=== PATIENT | female | born 1960 | race Caucasian/White ===

== ENCOUNTER 2018-02-20 21:54 | Observation (INO) ==
[2018-02-20 22:27] LABS: Baso % (Auto) 0.8 % (0.0-2.0); Eos # (Auto) 0.1 th/mm3 (0.0-0.4); Eos % (Auto) 1.9 % (0.0-4.0); Hematocrit 35.6 % (35.0-46.0); Hemoglobin 12.2 gm/dL (11.6-15.3); Lymph # (Auto) 2.4 th/mm3 (1.0-4.8); Lymph % (Auto) 42.4 % (9.0-44.0); Mean Corpuscular HGB Conc 34.3 % (32.0-36.0); Mean Corpuscular Hemoglobin 31.2 pg (27.0-34.0); Mean Platelet Volume 6.6 fL (7.0-11.0); Mono # (Auto) 0.4 th/mm3 (0.0-0.9); Neut # (Auto) 2.7 th/mm3 (1.8-7.7); Neut % (Auto) 47.9 % (16.0-70.0); Platelet Count 209 th/mm3 (150-450); Red Blood Count 3.91 mil/mm3 (4.00-5.30); Red Cell Distribution Width 13.4 % (11.6-17.2); White Blood Count 5.6 th/mm3 (4.0-11.0)
--- NOTE | 2018-02-20 22:36 | XR ---
EXAM DATE: 02/20/2018 10:12 PM EDT AGE/SEX: 58 years / Female INDICATIONS: Cough. CLINICAL DATA: This is the patient's initial encounter. Patient reports that signs and symptoms have been present for 1 day and indicates a pain score of 0/10. MEDICAL/SURGICAL HISTORY: Hypertension. None. COMPARISON: No prior exams available for comparison. FINDINGS: A single AP view of the chest demonstrates the lungs to be symmetrically aerated without evidence of mass, infiltrate or effusion. The cardiomediastinal contours are unremarkable. Osseous structures a re intact. CONCLUSION: The lungs are clear. Electronically signed by: Alejandro Franklin MD 02/20/2018 10:35 PM EDT
[2018-02-20 22:48] LABS: Alanine Aminotransferase 21 U/L (10-53); Albumin 4.3 g/dL (3.4-5.0); Anion Gap 9 meq/L (5-15); Aspartate Aminotransferase 27 U/L (15-37); Blood Urea Nitrogen 23 mg/dL (7-18); Calcium 9.4 mg/dL (8.5-10.1); Chloride 106 meq/L (98-107); Glomerular Filtration Rate 55 mL/min (>89); Glucose,Random 96 mg/dL (74-106); Lipase 154 U/L (73-393); Potassium 3.6 meq/L (3.5-5.1); Sodium 143 meq/L (136-145)
[2018-02-20 22:53] LABS: Alkaline Phosphatase 76 U/L (45-117); Creatine Kinase 112 U/L (26-192); Total Protein 8.4 g/dL (6.4-8.2)
--- NOTE | 2018-02-20 22:53 | ED ---
HPI General Chief complaint: Hypertension Stated complaint: poss syncope/evac Time Seen by Provider: 02/20/18 22:04 Source: patient Limitations: no limitations History of Present Illness HPI narrative: The patient is a 58 year old female who presents to the [facility] emergency department with a history of being found by her significant other just prior to arrival unresponsive at her hotel room. The patient was noted to be very hypertensive initially according to ambulance services with a blood pressure that was reportedly 220-230 systolic. The patient was also noted to have a pulse in the 160s, however it quickly improved down into the 70s. Ambulance services reported that there did appear to be needles in the hotel room, however the patient reports that she does not use any drugs and the needles were related to insulin administration for her significant other. The patient reports having a history of high blood pressure. She reports that she has been out of her medication for the last month. She cannot recall the name of the medication. Patient denies having any headache currently. The patient reports that yesterday she did have a headache. She denies having any chest pain, chest pressure, or shortness of breath. She denies having any numbness or tingling to her extremities or weakness of her extremities. On review of systems otherwise, the patient denies having any known recent fevers, cough, congestion, neck pain, abdominal pain, vomiting, diarrhea, urinary symptoms, or other neurologic symptoms. Related Data Home Medications Medication Instructions Recorded Confirmed hydralazine 10 mg PO DAILY 02/21/18 02/21/18 Allergies Allergy/AdvReac Type Severity Reaction Status Date / Time No Known Allergies Allergy Verified 02/20/18 22:06 Review of Systems ROS: all other systems reviewed are negative PMFSH Social History Social History Substance History: No History of Abuse Second Hand Smoke Exposure: Yes Smoking Status: Current every day smoker Tobacco Type: Cigarettes Packs Per Day: 1 Cigarettes Per Day: 20.0 How Often Do You Have a Drink Containing Alcohol: 2 to 3 times a week Recent Travel in [facility] within the Last 8 Weeks: No Recent Out of Country Travel within the Last 8 Weeks: No Immunization History Tetanus Immunization: Unsure Exam Const General: cooperative, no acute distress and well developed Nutritional Appearance: well nourished Orientation: alert, awake and oriented x3 HENMT Head: normocephalic and atraumatic Nose: no nasal discharge and no epistaxis Mouth: moist mucous membranes Throat: posterior oropharynx normal and uvula midline Eyes Sclera: normal sclerae Pupils: PERRL Neck Neck: no meningeal signs, trachea midline and no JVD Resp Effort & Inspection: no use of accessory muscles Auscultation: clear to auscultation bilaterally Cardio Rate: regular rate Rhythm: regular rhythm Heart Sounds: no murmurs GI Inspection: non-distended Palpation: soft, no hepatosplenomegaly and nontender Auscultation: normal bowel sounds Back/Spine/Pelvis Back: no CVA tenderness Skin General: dry skin (warm) Neuro General: alert, awake and oriented x3 Cranial Nerves: CN's II-XI intact bilaterally Speech: speech normal Motor: strength 5/5 throughout and no movement abnormalities noted Sensory Exam: no sensory deficits noted Extrem General: normal to inspection (2+ pulses in all 4 extremities.), no calf tenderness, no clubbing, no cyanosis and no edema Psych Mood: congruent mood Affect: normal affect Judgment: judgment good Course Reevaluation(s) Reevaluation #1: On reevaluation the patient reported feeling improved. The patient's blood pressure was slowly improving. Consultations Consultation #1: The patient's case including history, pertinent physical examination findings, and laboratory studies were discussed with Dr. Sanderson. It was agreed that the patient would be admitted to the hospitalist service. Initial Documented Vital Signs Temperature 98.6 F 02/20/18 21:58 Pulse Rate 70 02/20/18 21:58 Respiratory Rate 15 02/20/18 21:58 Blood Pressure 234/127 H 02/20/18 21:58 Pulse Oximetry 93 L 02/20/18 21:58 Last Documented Vital Signs Temperature 97.9 F 02/21/18 16:00 Pulse Rate 59 L 02/21/18 16:00 Respiratory Rate 18 02/21/18 16:00 Blood Pressure 150/75 H 02/21/18 16:00 Pulse Oximetry 97 02/21/18 16:00 Medical Decision Making MDM Narrative Medical decision making narrative: During the course of the patient's emergency department visit, the patient's history, examination, and differential diagnosis were reviewed with the patient. The patient was placed on a nurse monitoring with oximetry and frequent blood pressure monitoring. The patient had IV access obtained and blood work sent for analysis. A diagnostic evaluation was started regarding the patient's episode of decreased level of consciousness. The patient was initially provided Vasotec 1.25 mg IV. The patient's blood pressure was monitored closely and continued to be elevated, therefore hydralazine 10 mg IV was administered x1. The patient's urine drug screen was positive for cocaine, therefore beta blockers were held. The patient was additionally given Ativan 0.5 mg IV. The patient's diagnostic studies are remarkable for, normal white blood cell count of 5.6, hemoglobin 12.2, platelets 209 with a normal differential, PT PTT unremarkable, chemistry remarkable for a BUN of 23, creatinine 1.03, cardiac enzymes within normal limits, total protein 8.4, lipase within normal limits, urine drug screen was positive for opiates and cocaine, alcohol level less than 3. A chest x-ray, CT scan of the brain showed no acute abnormality. The patient's results were discussed with her and a friend at the bedside. The patient's friend reports that he witnessed the event and it appeared that she just suddenly passed out. The patient will be admitted for syncope and workup. The patient's results were discussed with the patient, including the plan of care. I explained that further testing and/ or monitoring is indicated based on the patient's history, examination, and/ or laboratory findings. Therefore, I recommended admission for additional evaluation. The patient expressed understanding and was agreeable with this plan. The patient was admitted to the hospital in guarded condition and sent to a bed under the care of [facility] service. Medical Screen Exam Complete: Yes Emergency Medical Condition: Yes Differential Diagnosis Differential Diagnosis: Hypertensive emergency, versus substance intoxication, versus syncope, versus cardiac arrhythmia Medical Records Medical records reviewed: Yes I reviewed the patient's medical records. Lab Data Lab results reviewed: Yes I reviewed the patient's lab results. Result diagrams: 02/20/18 22:10 02/20/18 22:10 Lab Results 02/20/18 02/20/18 02/20/18 Range/Units 22:10 22:10 22:10 WBC 5.6 (4.0-11.0) th/mm3 RBC 3.91 L (4.00-5.30) mil/mm3 Hgb 12.2 (11.6-15.3) gm/dL Hct 35.6 (35.0-46.0) % MCV 91.0 (80.0-100.0) fL MCH 31.2 (27.0-34.0) pg MCHC 34.3 (32.0-36.0) % RDW 13.4 (11.6-17.2) % Plt Count 209 (150-450) th/mm3 MPV 6.6 L (7.0-11.0) fL Neut % (Auto) 47.9 (16.0-70.0) % Lymph % (Auto) 42.4 (9.0-44.0) % [place] % (Auto) 7.0 (0.0-8.0) % Eos % (Auto) 1.9 (0.0-4.0) % Baso % (Auto) 0.8 (0.0-2.0) % Neut # (Auto) 2.7 (1.8-7.7) th/mm3 Lymph # (Auto) 2.4 (1.0-4.8) th/mm3 Emmons # (Auto) 0.4 (0.0-0.9) th/mm3 Eos # (Auto) 0.1 (0.0-0.4) th/mm3 Baso # (Auto) 0.0 (0.0-0.2) th/mm3 WBC Differential . Differential Comment Auto diff final PT 10.2 (9.8-11.6) sec INR 1.0 Ratio APTT 22.2 L (24.3-30.1) sec Sodium 143 (136-145) meq/L Potassium 3.6 (3.5-5.1) meq/L Chloride 106 (98-107) meq/L Carbon Dioxide 28.0 (21.0-32.0) meq/L Anion Gap 9 (5-15) meq/L BUN 23 H (7-18) mg/dL Creatinine 1.03 H (0.50-1.00) mg/dL Estimated GFR 55 L (>89) mL/min Random Glucose 96 (74-106) mg/dL Calcium 9.4 (8.5-10.1) mg/dL Total Bilirubin 0.4 (0.2-1.0) mg/dL AST 27 (15-37) U/L ALT 21 (10-53) U/L Alkaline Phosphatase 76 (45-117) U/L Total Creatine Kinase 112 (26-192) U/L CK-MB (CK-2) Less than 1.0 (0.5-3.6) ng/mL Troponin I Less than 0.02 L (0.02-0.05) ng/mL Total Protein 8.4 H (6.4-8.2) g/dL Albumin 4.3 (3.4-5.0) g/dL Lipase 154 (73-393) U/L Urine Color (Yellw/Straw) Urine Clarity (Clear) Urine pH (5.0-8.5) Ur Specific [place] (1.002-1.035) Urine Protein (Neg-Trace) mg/dL Urine Glucose (UA) (Negative) mg/dL Urine Ketones (Negative) mg/dL Urine Occult Blood (Negative) Urine Nitrate (Negative) Urine Bilirubin (Negative) Urine Urobilinogen (Less than 2) mg/dL Ur Leukocyte Esterase (Negative) Urine RBC (0-3) /hpf Urine WBC (0-5) /hpf Ur Squamous Epith Cells (0-5) /hpf Amorphous Sediment (None) /hpf Urine Bacteria (None) /hpf Hyaline Casts (0-3) /lpf Urine Mucus (Occasional) /lpf Micro UA Comment Ur Microscopic Review Urine Culture Comments Urine Opiates Screen (Neg) Ur Barbiturates Screen (Neg) Ur Amphetamines Screen (Neg) U Benzodiazepines Scrn (Neg) Urine Cocaine Screen (Neg) U Cannabinoids Screen (Neg) Serum Alcohol Less than 3 (0-5) mg/dL 02/20/18 02/20/18 02/21/18 Range/Units 22:45 22:45 08:00 WBC (4.0-11.0) th/mm3 RBC (4.00-5.30) mil/mm3 Hgb (11.6-15.3) gm/dL Hct (35.0-46.0) % MCV (80.0-100.0) fL MCH (27.0-34.0) pg MCHC (32.0-36.0) % RDW (11.6-17.2) % Plt Count (150-450) th/mm3 MPV (7.0-11.0) fL Neut % (Auto) (16.0-70.0) % Lymph % (Auto) (9.0-44.0) % Emmons % (Auto) (0.0-8.0) % Eos % (Auto) (0.0-4.0) % Baso % (Auto) (0.0-2.0) % Neut # (Auto) (1.8-7.7) th/mm3 Lymph # (Auto) (1.0-4.8) th/mm3 Emmons # (Auto) (0.0-0.9) th/mm3 Eos # (Auto) (0.0-0.4) th/mm3 Baso # (Auto) (0.0-0.2) th/mm3 WBC Differential Differential Comment PT (9.8-11.6) sec INR Ratio APTT (24.3-30.1) sec Sodium (136-145) meq/L Potassium (3.5-5.1) meq/L Chloride (98-107) meq/L Carbon Dioxide (21.0-32.0) meq/L Anion Gap (5-15) meq/L BUN (7-18) mg/dL Creatinine (0.50-1.00) mg/dL Estimated GFR (>89) mL/min Random Glucose (74-106) mg/dL Calcium (8.5-10.1) mg/dL Total Bilirubin (0.2-1.0) mg/dL AST (15-37) U/L ALT (10-53) U/L Alkaline Phosphatase (45-117) U/L Total Creatine Kinase (26-192) U/L CK-MB (CK-2) (0.5-3.6) ng/mL Troponin I 0.03 (0.02-0.05) ng/mL Total Protein (6.4-8.2) g/dL Albumin (3.4-5.0) g/dL Lipase (73-393) U/L Urine Color Yellow (Yellw/Straw) Urine Clarity Cloudy H (Clear) Urine pH 7.0 (5.0-8.5) Ur Specific [place] 1.017 (1.002-1.035) Urine Protein 30 H (Neg-Trace) mg/dL Urine Glucose (UA) Negative (Negative) mg/dL Urine Ketones Negative (Negative) mg/dL Urine Occult Blood Negative (Negative) Urine Nitrate Negative (Negative) Urine Bilirubin Negative (Negative) Urine Urobilinogen Less than 2 (Less than 2) mg/dL Ur Leukocyte Esterase Moderate H (Negative) Urine RBC 1 (0-3) /hpf Urine WBC 14 H (0-5) /hpf Ur Squamous Epith Cells 1 (0-5) /hpf Amorphous Sediment Moderate H (None) /hpf Urine Bacteria Rare H (None) /hpf Hyaline Casts 37 (0-3) /lpf Urine Mucus Few H (Occasional) /lpf Micro UA Comment Culture indicated Ur Microscopic Review Not Reportable Urine Culture Comments Culture indicated Urine Opiates Screen Pos H (Neg) Ur Barbiturates Screen Neg (Neg) Ur Amphetamines Screen Neg (Neg) U Benzodiazepines Scrn Neg (Neg) Urine Cocaine Screen Pos H (Neg) U Cannabinoids Screen Neg (Neg) Serum Alcohol (0-5) mg/dL 02/21/18 Range/Units 11:39 WBC (4.0-11.0) th/mm3 RBC (4.00-5.30) mil/mm3 Hgb (11.6-15.3) gm/dL Hct (35.0-46.0) % MCV (80.0-100.0) fL MCH (27.0-34.0) pg MCHC (32.0-36.0) % RDW (11.6-17.2) % Plt Count (150-450) th/mm3 MPV (7.0-11.0) fL Neut % (Auto) (16.0-70.0) % Lymph % (Auto) (9.0-44.0) % Emmons % (Auto) (0.0-8.0) % Eos % (Auto) (0.0-4.0) % Baso % (Auto) (0.0-2.0) % Neut # (Auto) (1.8-7.7) th/mm3 Lymph # (Auto) (1.0-4.8) th/mm3 Emmons # (Auto) (0.0-0.9) th/mm3 Eos # (Auto) (0.0-0.4) th/mm3 Baso # (Auto) (0.0-0.2) th/mm3 WBC Differential Differential Comment PT (9.8-11.6) sec INR Ratio APTT (24.3-30.1) sec Sodium (136-145) meq/L Potassium (3.5-5.1) meq/L Chloride (98-107) meq/L Carbon Dioxide (21.0-32.0) meq/L Anion Gap (5-15) meq/L BUN (7-18) mg/dL Creatinine (0.50-1.00) mg/dL Estimated GFR (>89) mL/min Random Glucose (74-106) mg/dL Calcium (8.5-10.1) mg/dL Total Bilirubin (0.2-1.0) mg/dL AST (15-37) U/L ALT (10-53) U/L Alkaline Phosphatase (45-117) U/L Total Creatine Kinase (26-192) U/L CK-MB (CK-2) (0.5-3.6) ng/mL Troponin I Less than 0.02 L (0.02-0.05) ng/mL Total Protein (6.4-8.2) g/dL Albumin (3.4-5.0) g/dL Lipase (73-393) U/L Urine Color (Yellw/Straw) Urine Clarity (Clear) Urine pH (5.0-8.5) Ur Specific [place] (1.002-1.035) Urine Protein (Neg-Trace) mg/dL Urine Glucose (UA) (Negative) mg/dL Urine Ketones (Negative) mg/dL Urine Occult Blood (Negative) Urine Nitrate (Negative) Urine Bilirubin (Negative) Urine Urobilinogen (Less than 2) mg/dL Ur Leukocyte Esterase (Negative) Urine RBC (0-3) /hpf Urine WBC (0-5) /hpf Ur Squamous Epith Cells (0-5) /hpf Amorphous Sediment (None) /hpf Urine Bacteria (None) /hpf Hyaline Casts (0-3) /lpf Urine Mucus (Occasional) /lpf Micro UA Comment Ur Microscopic Review Urine Culture Comments Urine Opiates Screen (Neg) Ur Barbiturates Screen (Neg) Ur Amphetamines Screen (Neg) U Benzodiazepines Scrn (Neg) Urine Cocaine Screen (Neg) U Cannabinoids Screen (Neg) Serum Alcohol (0-5) mg/dL Imaging Data Radiologist's impression: Head CT 02/20/18 22:05 CONCLUSION: 1. Negative noncontrast CT brain. . Chest X-Ray 02/20/18 22:12 CONCLUSION: The lungs are clear. Carotid Doppler Study 02/21/18 00:00 CONCLUSION: No hemodynamically significant stenosis in either carotid artery Discharge Plan Discharge Disposition Patient Disposition: 30 Still Patient Discharge Condition Condition: Good Discharge Details Anticipated Discharge Date: 02/22/18 Diagnosis: Syncope, HTN (hypertension) Physicians Team ED Provider: Opal Dunaway Primary Care Provider: Primary Care Guillermina Toro Attending Provider: Graham Chávez Discharge Interventions Interventions: ED Discharge Assessment Last Done: 02/21/18 03:38 Vital Signs Last Done: 02/21/18 00:08 Status ED Status: Left Department Discharge Information Discharge Date/Time: 02/21/18 04:00
[2018-02-20 22:58] LABS: Activated Partial Thrombo Time 22.2 sec (24.3-30.1); Prothrombin Time 10.2 sec (9.8-11.6)
--- NOTE | 2018-02-20 23:06 | CT ---
EXAM DATE: 02/20/2018 10:45 PM EDT AGE/SEX: 58 years / Female INDICATIONS: Trauma; fall. Patient complains of dizziness. Elevated blood pressure. CLINICAL DATA: This is the patient's initial encounter. Patient reports that signs and symptoms have been present for 1 day and indicates a pain score of 3/10. MEDICAL/SURGICAL HISTORY: Hypertension. None. RADIATION DOSE: 56.35 CTDI (mGy) COMPARISON: No prior exams available for comparison. TECHNIQUE: CT of the head without contrast. Using automated exposure control and adjustment of the mA and/or kV according to patient size, radiation dose was kept as low as reasonably achievable to ob tain optimal diagnostic quality images. DICOM format image data is available electronically for revi ew and comparison. FINDINGS: Cerebrum: The ventricles are normal for age. No evidence of midline shift, mass lesion, hemorrhage or acute infarction. No extraaxial fluid collections are seen. Posterior Fossa: The cerebellum and brainstem are intact. The 4th ventricle is midline. The cerebe llopontine angle is unremarkable. Extracranial: The visualized portion of the orbits is intact. Skull: The calvaria is intact. No evidence of skull fracture. CONCLUSION: 1. Negative noncontrast CT brain. . Electronically signed by: Alejandro Franklin MD 02/20/2018 11:05 PM EDT
[2018-02-20 23:17] LABS: Amphetamine Screen,Urine Neg (Neg); Barbiturate Screen,Urine Neg (Neg); Cannabinoid Screen,Urine Neg (Neg); Cocaine Screen,Urine Pos (Neg); Opiate Screen,Urine Pos (Neg)
[2018-02-20 23:20] LABS: Amorphous Sediment,Urine Moderate /hpf; Bacteria,Urine Rare /hpf; Bilirubin,Urine Negative (Negative); Clarity,Urine Cloudy (Clear); Color,Urine Yellow (Yellw/Straw); Glucose,Urine (UA) Negative (Negative); Hyaline Casts,Urine 37 /lpf (0-3); Leukocyte Esterase,Urine Moderate (Negative); Mucus,Urine Few /lpf (Occasional); Nitrite,Urine Negative (Negative); Specific Gravity,Urine 1.017 (1.002-1.035); Squamous Epithelial Cell,Urine 1 /hpf (0-5)
[2018-02-21] MEDS ORDERED: hydrALAZINE HCl Inj 20 MG/ML Vial IV.PUSH ONE (00:59)
[2018-02-21] MEDS ORDERED: Bisacodyl 10 MG Supp RECTAL PRN (01:14)
--- NOTE | 2018-02-21 02:54 | P.HPIM ---
History of Present Illness Primary Care Physician: No Primary Care Physician History of Present Illness: This is a 58-year-old female with a PMH of HTN and Tobacco Abuse who was brought to the ER by EMS after apparent syncopal event. Pt reports her and her have been staying at a local [facility]el since they moved here 2 months ago, pt was standing in the kitchen when she had sudden onset syncopal event witnessed by . Denies dizziness, lightheadedness or chest pain. On arrival, BP 234/127, HR 70, O2 sat 93% on RA, Afebrile. CBC unremarkable. INR 1.0. Creatinine 1.03. Troponin negative. UA positive for UTI. Urine Drug Screen positive for Cocaine and Opiates. Alcohol negative. CT Head negative. CXR clear. Pt reports she takes HCTZ, but off meds x1 month after she ran out. Denies drug use/IVDU, however tox screen positive. - Diagnosis (1) Syncope (2) HTN (hypertension) (3) Cocaine abuse Review of Systems PAST FAMILY HISTORY: Reviewed. 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 - Surgical History Surgical History: Surgical History (Last Updated 02/20/18 @ 22:05 by Marie Alicea) History of cholecystectomy - Tobacco History Second Hand Smoke Exposure: Yes Tobacco Use In Past 30 Days: Yes Smoking Status: Current every day smoker Tobacco Type: Cigarettes Packs Per Day: 1 Cigarettes Per Day: 20.0 - Alcohol History How Often Do You Have a Drink Containing Alcohol: 4 or more times a week - Substance Use History Substance History: No History of Abuse - Travel History Recent Travel in the [place] Within the Last 8 Weeks: No Recent Travel Out of the Country Within the Last 8 Weeks: No - Immunization History Tetanus Immunization: Unsure Medications and Allergies Active Medications: Active Medications Acetaminophen (Tylenol) 650 mg PO Q4H PRN PRN Reason: Temp > 100.4 Al Hydroxide/Mg Hydroxide (Milk Of Magnesia Liq) 30 ml PO Q12H PRN PRN Reason: Mild Constipation Bisacodyl (Dulcolax Supp) 10 mg RECTAL DAILY PRN PRN Reason: SEVERE CONSITIPATION Ceftriaxone Sodium 1,000 mg/ (Sodium Chloride) 100 mls @ 200 mls/hr IV.SIG Q24H [facility] Last Infusion: 02/21/18 02:41 Dose: Infused Sodium Chloride (Ns Inj) 1,000 mls @ 100 mls/hr IV.CONT .Q10H [facility] Lactulose (Lactulose Liq) 30 ml PO DAILY PRN PRN Reason: SEVERE CONSITIPATION Lorazepam (Ativan Inj) 1 mg IV.PUSH Q4H PRN PRN Reason: WITHDRAWAL/AGITATION Ondansetron HCl (Zofran Inj) 4 mg IV.PUSH Q6H PRN PRN Reason: NAUSEA OR VOMITING Senna/Docusate Sodium (Elsy-Colace) 1 tab PO BID [facility] Sennosides (Senokot) 17.2 mg PO Q12H PRN PRN Reason: Moderate Constipation Allergies Allergy/AdvReac Type Severity Reaction Status Date / Time No Known Allergies Allergy Verified 02/20/18 22:06 Home Medications Medication Instructions Recorded Confirmed Type Unable to Obtain Home Meds 02/20/18 02/20/18 History Exam Vital signs: Vital Signs 02/20/18 21:58 02/20/18 22:06 02/20/18 22:07 Temperature 98.6 F Pulse Rate 70 64 71 Respiratory Rate 15 15 Blood Pressure 234/127 H 197/91 H Pulse Oximetry 93 L 97 02/20/18 23:05 02/21/18 00:08 02/21/18 01:24 Temperature Pulse Rate 65 63 72 Respiratory Rate 17 15 20 Blood Pressure 190/85 H 187/94 H 187/77 H Pulse Oximetry 97 97 97 02/21/18 02:08 02/21/18 02:42 Temperature Pulse Rate 72 68 Respiratory Rate 15 17 Blood Pressure 159/79 H 157/64 H Pulse Oximetry 97 97 Intake & Output 02/20/18 02/20/18 02/21/18 06:59 18:59 06:59 Intake Total 100 / 100 Balance 100 / 100 Weight 50.126 kg Intake: IV 100 / 100 Rocephin Inj 1,000 MG In NS Inj 100 / 100 100 ML @ 200 mls/hr IV.SIG Q24H [facility] Rx#:[id number] Narrative: PE: GENERAL: Middle-aged white female in no acute distress. at bedside. SKIN: Focused skin assessment warm and dry. HEENT: PERRLA, EOMI. No scleral icterus or conjunctival pallor. No lid lag or facial droop. CARDIOVASCULAR: Regular rate and rhythm. No obvious murmurs to auscultation. No chest tenderness to palpation. RESPIRATORY: No obvious rhonchi or wheezing. Clear to auscultation. Breath sounds equal bilaterally. GASTROINTESTINAL: Abdomen soft, non-tender, nondistended. BS normal. MUSCULOSKELETAL: Extremities without clubbing, cyanosis, or edema. No obvious deformities. NEUROLOGICAL: Awake, alert and oriented x4. No focal neurologic deficits. Moving both upper and lower extremities spontaneously. PSYCHIATRIC: Appropriate mood and affect. Insight and judgment normal. Results - Labs CBC & Chem 7: 02/20/18 22:10 02/20/18 22:10 Labs: Short CBC 02/20/18 Range/Units 22:10 WBC 5.6 (4.0-11.0) th/mm3 Hgb 12.2 (11.6-15.3) gm/dL Hct 35.6 (35.0-46.0) % Plt Count 209 (150-450) th/mm3 BMP 02/20/18 22:10 Sodium 143 Potassium 3.6 Chloride 106 Carbon Dioxide 28.0 BUN 23 H Creatinine 1.03 H Calcium 9.4 Cardiac Enzymes 02/20/18 Range/Units 22:10 Total Creatine Kinase 112 (26-192) U/L CK-MB (CK-2) Less than 1.0 (0.5-3.6) ng/mL Troponin I Less than 0.02 L (0.02-0.05) ng/mL Liver Function 02/20/18 Range/Units 22:10 Total Bilirubin 0.4 (0.2-1.0) mg/dL AST 27 (15-37) U/L ALT 21 (10-53) U/L Alkaline Phosphatase 76 (45-117) U/L Albumin 4.3 (3.4-5.0) g/dL Urine 02/20/18 Range/Units 22:45 Urine Color Yellow (Yellw/Straw) Urine Clarity Cloudy H (Clear) Urine pH 7.0 (5.0-8.5) Ur Specific [place] 1.017 (1.002-1.035) Urine Protein 30 H (Neg-Trace) mg/dL Urine Glucose (UA) Negative (Negative) mg/dL - Imaging Impressions Head CT 02/20/18 22:05 CONCLUSION: 1. Negative noncontrast CT brain. . Chest X-Ray 02/20/18 22:12 CONCLUSION: The lungs are clear. Caprini VTE Risk Assessment Caprini VTE Risk Assessment: No/Low Risk (score <= 1) Caprini Risk Assessment Model: Point Value = 1 Point Value = 2 Point Value = 3 Point Value = 5 Age 41-60 Minor surgery BMI > 25 kg/m2 Swollen legs Varicose veins or History of unexplained or recurrent spontaneous Oral contraceptives or hormone replacement Sepsis (< 1 month) Serious lung disease, including pneumonia (< 1 month) Abnormal pulmonary function Acute myocardial infarction Congestive heart failure (< 1 month) History of inflammatory bowel disease Medical patient at bed rest Age 61-74 Arthroscopic surgery Major open surgery (> 45 min) Laparoscopic surgery (> 45 min) Malignancy Confined to bed (> 72 hours) Immobilizing plaster cast Central venous access Age >= 75 History of VTE Family history of VTE Factor V Leiden Prothrombin [id number] Lupus anticoagulant Anticardiolipin antibodies Elevated serum homocysteine Heparin-induced thrombocytopenia Other congenital or acquired thrombophilia Stroke (< 1 month) Elective arthroplasty Hip, pelvis, or leg fracture Acute spinal cord injury (< 1 month) Prophylaxis Regimen: Total Risk Factor Score Risk Level Prophylaxis Regimen 0-1 Low Early ambulation 2 Moderate Order ONE of the following: *Sequential Compression Device (SCD) *Heparin 5000 units SQ BID 3-4 Higher Order ONE of the following medications: *Heparin 5000 units SQ TID *Enoxaparin/Lovenox 40 mg SQ daily (WT < 150 kg, CrCl > 30 mL/min) *Enoxaparin/Lovenox 30 mg SQ daily (WT < 150 kg, CrCl > 10-29 mL/min) *Enoxaparin/Lovenox 30 mg SQ BID (WT < 150 kg, CrCl > 30 mL/min) AND/OR *Sequential Compression Device (SCD) 5 or more Highest Order ONE of the following medications: *Heparin 5000 units SQ TID (Preferred with Epidurals) *Enoxaparin/Lovenox 40 mg SQ daily (WT < 150 kg, CrCl > 30 mL/min) *Enoxaparin/Lovenox 30 mg SQ daily (WT < 150 kg, CrCl > 10-29 mL/min) *Enoxaparin/Lovenox 30 mg SQ BID (WT < 150 kg, CrCl > 30 mL/min) AND *Sequential Compression Device (SCD) Assessment and Plan - Assessment (1) Syncope Code(s): R55 - Syncope and collapse Status: Acute (2) HTN (hypertension) Code(s): I10 - Essential (primary) hypertension Status: Acute (3) Cocaine abuse Code(s): F14.10 - Cocaine abuse, uncomplicated Status: Acute - Plan A/P: 1. Syncope: acute syncopal event witnessed by , possibly drug-related, admit for Observation, telemetry, initial trop negative, check serial cardiac enzymes to r/o underlying ischemia, Check Echo to eval for valvular abnormality/ cardiomyopathy. 2. UTI: U/a w/ UTI, IVF for hydration, follow up urine cultures, start Rocephin IV. 3. KEKE: Creatinine 1.03, no previous labs for comparison, IVF for hydration, repeat labs in am, monitor I/O. 4. HTN: Uncontrolled. BP 234/127, HR 70 on arrival, likely compounded by non- compliance w/ BP meds and Cocaine. S/p Enalapril in ER, will give Ativan now, monitor BP, antihypertensives as needed. 5. Cocaine Abuse: UDS +cocaine, Ativan prn for withdrawal 6. DVT Prophylaxis: SCD/Teds 7. Social work for d/c planning as needed. 8. Case discussed w/ ER physician at length, labs/records/imaging reviewed by me
[2018-02-21] MEDS: Sod Chloride 0.9% Inj 1,000 ML IV.CONT SCH ×3 (03:44→23:16)
[2018-02-21] MEDS: Senna/Docusate Sodium 8.6/50 MG Tablet PO SCH ×2 (08:01→20:45)
--- NOTE | 2018-02-21 14:47 | US ---
EXAM DATE: 02/21/2018 12:00 AM EDT AGE/SEX: 58 years / Female INDICATIONS: Syncope. CLINICAL DATA: This is the patient's initial encounter. Patient reports that signs and symptoms have been present for 1 day and indicates a pain score of 0/10. MEDICAL/SURGICAL HISTORY: Hypertension. Guillain Lynd syndrome. Cholecystectomy. COMPARISON: No prior exams available for comparison. VELOCITY PARAMETERS: ICA/CCA Ratio: Right 1.6 , Left 1.1 ICA: Right 114 cm/sec, Left 96 cm/sec CCA: Right 72 cm/sec, Left 91 cm/sec ECA: Right 107 cm/sec, Left 79 cm/sec Vertebral: Right 42 cm/sec antegrade, Left 57 cm/sec antegrade FINDINGS: Right Carotid: Mild arteriosclerotic plaque is visualized.The waveforms are within normal limits. Left Carotid: No significant plaque is visualized. The waveforms are within normal limits. Other: None. CONCLUSION: No hemodynamically significant stenosis in either carotid artery Electronically signed by: Gilberto Rojas MD 02/21/2018 2:46 PM EDT
[2018-02-21] MEDS: Acetaminophen 325 MG Tablet PO PRN ×2 (15:45→19:50)
--- NOTE | 2018-02-21 16:54 | ECHRPT ---
Indication: SYNCOPE CONCLUSIONS Normal left ventricular size. Wall thickness is normal. The left ventricular systolic function is normal with an estimated ejection fraction in the range of 55-60%. There is trace tricuspid valve regurgitation. The estimated pulmonary arterial pressure is 31 mmHg. BP: / HR: Rhythm: MEASUREMENTS (Male / Female) Normal Values Technical Quality: 2D ECHO LV Diastolic Diameter PLAX 4.1 cm 4.2 - 5.9 / 3.9 - 5.3 cm LV Systolic Diameter PLAX 3.1 cm IVS Diastolic Thickness 1.1 cm 0.6 - 1.0 / 0.6 - 0.9 cm LVPW Diastolic Thickness 1.0 cm 0.6 - 1.0 / 0.6 - 0.9 cm LV Relative Wall Thickness 0.5 RV Internal Dim ED PLAX 2.4 cm LVOT Diameter 1.9 cm Aortic Root Diameter 2.5 cm LA Systolic Diameter LX 2.8 cm 3.0 - 4.0 / 2.7 - 3.8 cm DOPPLER AV Peak Velocity 136.0 cm/s AV Peak Gradient 7.4 mmHg LVOT Peak Velocity 113.0 cm/s LVOT Peak Gradient 5.1 mmHg AV Area Cont Eq pk 2.4 cm Mitral E Point Velocity 40.9 cm/s Mitral A Point Velocity 84.9 cm/s Mitral E to A Ratio 0.5 LV E' Lateral Velocity 7.3 cm/s Mitral E to LV E' Lateral Ratio 5.6 LV E' Septal Velocity 6.3 cm/s Mitral E to LV E' Septal Ratio 6.4 TR Peak Velocity 229.0 cm/s TR Peak Gradient 21.0 mmHg Right Atrial Pressure 10.0 mmHg Pulmonary Artery Systolic Pressu 31.0 mmHg Right Ventricular Systolic Press 31.0 mmHg PV Peak Velocity 82.8 cm/s PV Peak Gradient 2.7 mmHg FINDINGS LEFT VENTRICLE Normal left ventricular size. Wall thickness is normal. The left ventricular systolic function is normal with an estimated ejection fraction in the range of 55-60%. RIGHT VENTRICLE Normal right ventricular size and systolic function. LEFT ATRIUM The left atrial size is normal. RIGHT ATRIUM The right atrial size is normal. ATRIAL SEPTUM Normal atrial septal thickness without atrial level shunting by limited color doppler interrogation. AORTA The aortic root and proximal ascending aorta are normal in size on limited imaging. MITRAL VALVE Structurally normal mitral valve. No mitral valve stenosis or regurgitation. AORTIC VALVE Trileaflet aortic valve. No aortic valve stenosis or regurgitation. TRICUSPID VALVE There is trace tricuspid valve regurgitation. The estimated pulmonary arterial pressure is 31 mmHg. PULMONARY VALVE No pulmonary valve regurgitation or stenosis. VESSELS The inferior vena cava is normal in size. PERICARDIUM No pericardial effusion. Torrie Cline MD (Electronically Signed) Final Date:21 February 2018 16:53
[2018-02-22 05:14] LABS: Baso % (Auto) 0.6 % (0.0-2.0); Eos # (Auto) 0.1 th/mm3 (0.0-0.4); Eos % (Auto) 2.3 % (0.0-4.0); Hematocrit 31.5 % (35.0-46.0); Hemoglobin 10.7 gm/dL (11.6-15.3); Lymph # (Auto) 1.8 th/mm3 (1.0-4.8); Lymph % (Auto) 36.4 % (9.0-44.0); Mean Corpuscular Hemoglobin 31.9 pg (27.0-34.0); Mean Corpuscular Volume 93.9 fL (80.0-100.0); Mean Platelet Volume 7.1 fL (7.0-11.0); Mono # (Auto) 0.4 th/mm3 (0.0-0.9); Mono % (Auto) 7.5 % (0.0-8.0); Neut # (Auto) 2.6 th/mm3 (1.8-7.7); Neut % (Auto) 53.2 % (16.0-70.0); Platelet Count 161 th/mm3 (150-450); Red Blood Count 3.36 mil/mm3 (4.00-5.30); Red Cell Distribution Width 13.8 % (11.6-17.2); White Blood Count 4.8 th/mm3 (4.0-11.0)
[2018-02-22 05:51] LABS: Alanine Aminotransferase 16 U/L (10-53); Alkaline Phosphatase 70 U/L (45-117); Anion Gap 9 meq/L (5-15); Aspartate Aminotransferase 16 U/L (15-37); Blood Urea Nitrogen 24 mg/dL (7-18); Calcium 8.1 mg/dL (8.5-10.1); Carbon Dioxide 24.1 meq/L (21.0-32.0); Chloride 115 meq/L (98-107); Glomerular Filtration Rate 59 mL/min (>89); Glucose,Random 100 mg/dL (74-106); Potassium 4.1 meq/L (3.5-5.1); Sodium 148 meq/L (136-145); Total Protein 6.4 g/dL (6.4-8.2)
[2018-02-22] MEDS: Acetaminophen 325 MG Tablet PO PRN (06:15)
[2018-02-22] MEDS ORDERED: Dextrose 5% in Water Inj 1,000 ML IV.CONT SCH (08:15)
[2018-02-22] MEDS: Senna/Docusate Sodium 8.6/50 MG Tablet PO SCH (08:25)
[2018-02-22] MEDS: Sod Chloride 0.9% Inj 1,000 ML IV.CONT SCH (08:31)
[2018-02-22] MEDS ORDERED: amLODIPine 5 MG Tablet PO SCH (09:00)
[2018-02-22 09:20] VITALS: O2SAT 98
[2018-02-22] MEDS ORDERED: amLODIPine 5 MG Tablet PO ONE (09:27)
--- NOTE | 2018-02-22 09:39 | P.PNIM ---
Subjective Interval history: Patient says she is feeling all right. Denies any lightheadedness or dizziness. Denies any chest pain or shortness of breath. Physical Exam Vital signs: Vital Signs 02/21/18 12:00 02/21/18 12:01 02/21/18 12:03 Temperature 98.4 F Pulse Rate 60 60 65 Respiratory Rate 17 Blood Pressure 139/77 146/84 H Pulse Oximetry 98 02/21/18 16:00 02/21/18 20:00 02/22/18 00:00 Temperature 97.9 F 98.6 F 97.9 F Pulse Rate 59 L 65 61 Respiratory Rate 18 18 18 Blood Pressure 150/75 H 162/90 H 168/104 H Pulse Oximetry 97 98 97 02/22/18 04:00 02/22/18 08:00 Temperature 98.3 F 97.0 F L Pulse Rate 54 L 60 Respiratory Rate 19 16 Blood Pressure 172/88 H 182/93 H Pulse Oximetry 100 98 Intake & Output 02/21/18 02/22/18 02/22/18 18:59 06:59 18:59 Intake Total 900 / 900 1743 / 1743 Output Total 700 / 700 Balance 900 / 900 1043 / 1043 Weight 54.3 kg Intake: IV 900 / 900 1743 / 1743 NS Inj 1,000 ML @ 100 mls/hr IV 900 / 900 1643 / 1643 .CONT .Q10H [facility] Rx#:[id number] Rocephin Inj 1,000 MG In NS Inj 100 / 100 100 ML @ 200 mls/hr IV.SIG Q24H [facility] Rx#:[id number] Output: Urine 700 / 700 Narrative: GENERAL: Sitting up in bed. Appears comfortable. Alert and oriented x3. SKIN: Warm and dry. HEAD: Normocephalic. EYES: No scleral icterus. No injection or drainage. NECK: Supple, trachea midline. No JVD. CARDIOVASCULAR: Regular rate and rhythm without murmurs, gallops, or rubs. RESPIRATORY: Breath sounds equal bilaterally. No accessory muscle use. GASTROINTESTINAL: Abdomen soft, non-tender, nondistended. MUSCULOSKELETAL: No cyanosis, or edema. BACK: Nontender without obvious deformity. No CVA tenderness. Results - Labs CBC & Chem 7: 02/22/18 04:25 02/22/18 04:25 Laboratory Results - last 24 hr 02/21/18 02/22/18 02/22/18 11:39 04:25 04:25 WBC 4.8 RBC 3.36 L Hgb 10.7 L Hct 31.5 L MCV 93.9 MCH 31.9 MCHC 34.0 RDW 13.8 Plt Count 161 MPV 7.1 Neut % (Auto) 53.2 Lymph % (Auto) 36.4 [place] % (Auto) 7.5 Eos % (Auto) 2.3 Baso % (Auto) 0.6 Neut # (Auto) 2.6 Lymph # (Auto) 1.8 [place] # (Auto) 0.4 Eos # (Auto) 0.1 Baso # (Auto) 0.0 WBC Differential . Differential Comment Auto diff final Sodium 148 H Potassium 4.1 Chloride 115 H D Carbon Dioxide 24.1 Anion Gap 9 BUN 24 H Creatinine 0.97 Estimated GFR 59 L Random Glucose 100 Calcium 8.1 L D Total Bilirubin 0.2 AST 16 ALT 16 Alkaline Phosphatase 70 Troponin I Less than 0.02 L Total Protein 6.4 D Albumin 3.0 L D Microbiology 02/20/18 22:45 Clean Catch Urine Urine Culture - Preliminary Immature growth - reincubate - Imaging Impressions Carotid Doppler Study 02/21/18 00:00 CONCLUSION: No hemodynamically significant stenosis in either carotid artery Assessment and Plan - Assessment (1) Syncope Code(s): R55 - Syncope and collapse Status: Acute (2) HTN (hypertension) Code(s): I10 - Essential (primary) hypertension Status: Acute (3) Cocaine abuse Code(s): F14.10 - Cocaine abuse, uncomplicated Status: Acute - Plan //Syncope: acute syncopal event witnessed by , possibly drug-related, admit for Observation, telemetry, initial trop negative, check serial cardiac enzymes to r/o underlying ischemia, Check Echo to eval for valvular abnormality/ cardiomyopathy. = Echo with normal ejection fraction. Reviewed telemetry with no acute events. Unremarkable. Trace tricuspid regurgitation. Carotid ultrasound with plaque but no significant stenosis. // UTI: U/a w/ UTI, IVF for hydration, follow up urine cultures, start Rocephin IV. = Clinically asymptomatic bacteriuria. Patient denied dysuria. Urine culture still pending. //KEKE: Creatinine 1.03, no previous labs for comparison, IVF for hydration, repeat labs in am, monitor I/O. // HTN: Uncontrolled. BP 234/127, HR 70 on arrival, likely compounded by non- compliance w/ BP meds and Cocaine. S/p Enalapril in ER, will give Ativan now, monitor BP, antihypertensives as needed. = 02/22. Will start back on blood pressure medications of hydrochlorothiazide and amlodipine. // Cocaine Abuse: UDS +cocaine, Ativan prn for withdrawal = Advised avoiding any stimulants. // DVT Prophylaxis: SCD/Teds Discussed Condition With: Patient, nurse Discharge Planning: Discharge home today. Follow-up with primary care within 1 week. Avoid any stimulants including cocaine. Patient conveys understanding. (1) Syncope Qualifiers: Syncope type: unspecified Qualified Code(s): R55 - Syncope and collapse (2) HTN (hypertension) Qualifiers: Hypertension type: unspecified Qualified Code(s): I10 - Essential (primary) hypertension
--- NOTE | 2018-02-22 09:40 | P.DS ---
Date of admission: 02/21/18 01:11 Primary care physician: No Primary Care Physician Brief History from admission: This is a 58-year-old female with a PMH of HTN and Tobacco Abuse who was brought to the ER by EMS after apparent syncopal event. Pt reports her and her have been staying at a local Motel since they moved here 2 months ago, pt was standing in the kitchen when she had sudden onset syncopal event witnessed by . Denies dizziness, lightheadedness or chest pain. On arrival, BP 234/127, HR 70, O2 sat 93% on RA, Afebrile. CBC unremarkable. INR 1.0. Creatinine 1.03. Troponin negative. UA positive for UTI. Urine Drug Screen positive for Cocaine and Opiates. Alcohol negative. CT Head negative. CXR clear. Pt reports she takes HCTZ, but off meds x1 month after she ran out. Denies drug use/IVDU, however tox screen positive. DS: Diagnosis - Discharge Diagnosis (1) Syncope Status: Acute (2) HTN (hypertension) Status: Acute (3) Cocaine abuse Status: Acute DS: Medications - Discharge Medications Prescriptions: amlodipine 5 mg PO DAILY 30 Days #30 tab hydrochlorothiazide 12.5 mg PO DAILY 30 Days #30 cap DS: Summary Hospital Course: Found to have elevated blood pressure in the 200s, and urinalysis positive for cocaine. Patient denies cocaine. Blood pressure medications were added with improvement in blood pressure. No further episodes of syncope or presyncope. Echocardiogram and carotid ultrasound with no acute findings. Minimal plaque on carotid ultrasound. Discussed with patient who conveys understanding For problem-based summary from most recent progress note, please see below. //Syncope: acute syncopal event witnessed by , possibly drug-related, admit for Observation, telemetry, initial trop negative, check serial cardiac enzymes to r/o underlying ischemia, Check Echo to eval for valvular abnormality/ cardiomyopathy. = Echo with normal ejection fraction. Reviewed telemetry with no acute events. Unremarkable. Trace tricuspid regurgitation. Carotid ultrasound with plaque but no significant stenosis. // UTI: U/a w/ UTI, IVF for hydration, follow up urine cultures, start Rocephin IV. = Clinically asymptomatic bacteriuria. Patient denied dysuria. Urine culture still pending. //KEKE: Creatinine 1.03, no previous labs for comparison, IVF for hydration, repeat labs in am, monitor I/O. // HTN: Uncontrolled. BP 234/127, HR 70 on arrival, likely compounded by non- compliance w/ BP meds and Cocaine. S/p Enalapril in ER, will give Ativan now, monitor BP, antihypertensives as needed. = 02/22. Will start back on blood pressure medications of hydrochlorothiazide and amlodipine. // Cocaine Abuse: UDS +cocaine, Ativan prn for withdrawal = Advised avoiding any stimulants. // DVT Prophylaxis: SCD/Teds Discussed Condition With: Patient, nurse Discharge Planning: Discharge home today. Follow-up with primary care within 1 week. Avoid any stimulants including cocaine. Patient conveys understanding. - Time Spent with Patient Total time spent providing and/or coordinating discharge services: Greater than 30 minutes - Quality: VTE Deep Vein Thrombosis/Pulmonary Embolism Present on Admission: No Exam Vital signs: Vital Signs 02/21/18 12:00 02/21/18 12:01 02/21/18 12:03 Temperature 98.4 F Pulse Rate 60 60 65 Respiratory Rate 17 Blood Pressure 139/77 146/84 H Pulse Oximetry 98 02/21/18 16:00 02/21/18 20:00 02/22/18 00:00 Temperature 97.9 F 98.6 F 97.9 F Pulse Rate 59 L 65 61 Respiratory Rate 18 18 18 Blood Pressure 150/75 H 162/90 H 168/104 H Pulse Oximetry 97 98 97 02/22/18 04:00 02/22/18 08:00 Temperature 98.3 F 97.0 F L Pulse Rate 54 L 60 Respiratory Rate 19 16 Blood Pressure 172/88 H 182/93 H Pulse Oximetry 100 98 Intake & Output 02/21/18 02/22/18 02/22/18 18:59 06:59 18:59 Intake Total 900 / 900 1743 / 1743 Output Total 700 / 700 Balance 900 / 900 1043 / 1043 Weight 54.3 kg Intake: IV 900 / 900 1743 / 1743 NS Inj 1,000 ML @ 100 mls/hr IV 900 / 900 1643 / 1643 .CONT .Q10H [facility] Rx#:[id number] Rocephin Inj 1,000 MG In NS Inj 100 / 100 100 ML @ 200 mls/hr IV.SIG Q24H [facility] Rx#:[id number] Output: Urine 700 / 700 Results Procedures completed during hospitalization: No invasive procedures Labs on day of discharge: Labs from last 24 hours 02/22/18 02/22/18 02/22/18 09:12 04:25 04:25 WBC 4.8 RBC 3.36 L Hgb 10.7 L Hct 31.5 L MCV 93.9 MCH 31.9 MCHC 34.0 RDW 13.8 Plt Count 161 MPV 7.1 Neut % (Auto) 53.2 Lymph % (Auto) 36.4 [place] % (Auto) 7.5 Eos % (Auto) 2.3 Baso % (Auto) 0.6 Neut # (Auto) 2.6 Lymph # (Auto) 1.8 [place] # (Auto) 0.4 Eos # (Auto) 0.1 Baso # (Auto) 0.0 WBC Differential . Differential Comment Auto diff final Sodium Pending 148 H Potassium Pending 4.1 Chloride Pending 115 H D Carbon Dioxide Pending 24.1 Anion Gap Pending 9 BUN Pending 24 H Creatinine Pending 0.97 Estimated GFR 59 L Random Glucose Pending 100 Calcium Pending 8.1 L D Total Bilirubin 0.2 AST 16 ALT 16 Alkaline Phosphatase 70 Troponin I Total Protein 6.4 D Albumin 3.0 L D 02/21/18 11:39 WBC RBC Hgb Hct MCV MCH MCHC RDW Plt Count MPV Neut % (Auto) Lymph % (Auto) [place] % (Auto) Eos % (Auto) Baso % (Auto) Neut # (Auto) Lymph # (Auto) [place] # (Auto) Eos # (Auto) Baso # (Auto) WBC Differential Differential Comment Sodium Potassium Chloride Carbon Dioxide Anion Gap BUN Creatinine Estimated GFR Random Glucose Calcium Total Bilirubin AST ALT Alkaline Phosphatase Troponin I Less than 0.02 L Total Protein Albumin Preliminary micro results at discharge 02/20/18 22:45 Urine Culture - Preliminary Clean Catch Urine Immature growth - reincubate - Impressions ITS Impressions Head CT 02/20/18 22:05 CONCLUSION: 1. Negative noncontrast CT brain. . Chest X-Ray 02/20/18 22:12 CONCLUSION: The lungs are clear. Carotid Doppler Study 02/21/18 00:00 CONCLUSION: No hemodynamically significant stenosis in either carotid artery Discharge Plan - Discharge Disposition Patient Disposition: 01 Discharge Home - Discharge Condition Condition: Good - Discharge Order Discharge Orders: Discharge Order (Routine); Ordered 02/22/18 Ordered By: Graham Chávez - Discharge Details Anticipated Discharge Date: 02/22/18 Discharge Comment: okay for DC if repeat sodium under 146 - Physicians Team Primary Care Provider: Primary Care Physici,No Attending Provider: Graham Chávez
[2018-02-22 10:11] LABS: Calcium 8.9 mg/dL (8.5-10.1); Carbon Dioxide 22.4 meq/L (21.0-32.0); Potassium 3.7 meq/L (3.5-5.1)
[2018-02-22 12:15] VITALS: BP 171/100; PULSE 61; RESP 17; TEMP 98.9
--- NOTE | 2018-02-23 19:29 | HM ---
Date Performed: 02/21/2018 Time Performed: 11:48:00 HOOKUP DATE: 02/21/18 11:48:00 AM Mon ANALYSIS START TIME: 02/21/2018 11:53:00 AM ANALYSIS END TIME: 02/22/2018 9:14:59 AM PATIENT AGE: 58 PATIENT HEIGHT PATIENT WEIGHT DRUG LIST PATIENT DIAGNOSIS: SYNCOPE UNCONTROLLED HYPERTENSION TEST NARRATIVE: The patient's average heart rate was 63 BPM. No episodes of tachycardia wer e noted. Heart rates less than 50 BPM were noted 1% of the time. No pauses exceeding 2.0 seconds were noted. 282 ventricular ectopics, which represented < 1% of the total beat count, were noted . The highest ventricular ectopic frequency occurred from 08:00 AM to 09:00 AM Tue. During this alber e 55 VE(s) occurred. Ventricular ectopics were observed as 279 isolated beat(s) and as 1 run(s). 65 supraventricular ectopics, which represented < 1% of the total beat count, were noted. The highe st supraventricular ectopic frequency occurred from 04:00 AM to 05:00 AM Tue. During this time 17 SV E(s) occurred. No episodes of ST depression (defined as -1.0 mm or more) were noted in channel 1. No episodes of ST depression (defined as -1.0 mm or more) were noted in channel 2. No episodes of ST depression (defined as -1.0 mm or more) were noted in channel 3. TEST INTERPRETATION: Sinus rhythm rare to occasional PACs occasional PVCs in singlets, and one triplet Signed by : Alexis Sánchez
== END 2018-02-22 12:46 | disposition home or self-care (01) ==
LOC: NEDA 21:54 → NEPE 21:54 → N04 02-21 02:45
PROVIDERS: ADMIT Internal Medicine; ATTEND Internal Medicine